=== PATIENT | female | born 1990 | race African-American/Black ===

== ENCOUNTER 2019-06-24 20:41 | Emergency (ER) | payer OTHER ==
[~2019-06-24] VITALS: Ht 162.6 cm; Wt 70.3 kg
[2019-06-24 21:12] VITALS: Ht 162.6 cm; Wt 70.3 kg
[2019-06-24 21:29] LABS: BASOPHIL % 0.7 % (0-2); PLATELET COUNT 359 x10^3mcL (130-400)
[2019-06-24 21:30] LABS: RED CELL DISTRIBUTION WIDTH 18.8 % (11.5-14.5)
[2019-06-24 21:45] LABS: CALCIUM 9.3 mg/dL (8.5-10.1); CARBON DIOXIDE 31.1 mmol/L (21-32); CREATININE SERUM 1.2 mg/dL (0.6-1.0); POTASSIUM SERUM 3.6 mmol/L (3.5-5.1)
[2019-06-24 21:49] LABS: ALBUMIN 3.9 g/dL (3.4-5.0); BILIRUBIN TOTAL 0.61 mg/dL (0.20-1.00); TOTAL PROTEIN, SERUM 8.1 g/dL (6.4-8.2)
[2019-06-24 23:45] VITALS: BP 111/65
== END 2019-06-24 23:45 | disposition home or self-care (01) ==
LOC: ED 20:41
PROVIDERS: Student in an Organized Health Care Education/Training Program
DX: R11.0 Nausea (principal); R42 Dizziness and giddiness; R10.13 Epigastric pain; J45.909 Unspecified asthma, uncomplicated
CPT/HCPCS: J1885; J2405; J7030; Q0092

== ENCOUNTER 2019-08-14 20:48 | Emergency (ER) | payer OTHER ==
[~2019-08-14] VITALS: Ht 160 cm; Wt 68.7 kg
[2019-08-14 20:51] VITALS: Ht 160 cm; Wt 68.7 kg
[2019-08-14 21:29] LABS: BASOPHIL % 0.5 % (0-2); PLATELET COUNT 331 x10^3mcL (130-400)
[2019-08-14 21:34] LABS: CALCIUM 9.1 mg/dL (8.5-10.1); CARBON DIOXIDE 27.3 mmol/L (21-32); CHLORIDE SERUM 102 mmol/L (98-107); GFR1 > 60 mL/min; GLUCOSE SERUM 142 mg/dL (74-106); POTASSIUM SERUM 3.9 mmol/L (3.5-5.1); RED CELL DISTRIBUTION WIDTH 19.4 % (11.5-14.5); SODIUM SERUM 141 mmol/L (136-145)
[2019-08-14 21:39] LABS: ALBUMIN 3.9 g/dL (3.4-5.0); ALKALINE PHOSPHATASE 73 U/L (46-116); ALT/SGPT 20 U/L (14-59); AST/SGOT 11 U/L (15-37); BILIRUBIN TOTAL 0.7 mg/dL (0.20-1.00); TOTAL PROTEIN, SERUM 8.2 g/dL (6.4-8.2)
[2019-08-14 21:50] LABS: AMPHETAMINE QUAL UR POSITIVE (See below)
[2019-08-14 21:50] LABS: FREE T4 1.21 ng/dL (0.76-1.46); FREE THYROXINE INDEX 3.1 ug/dL (1.4-4.5); T4(THYROXINE) 9.4 ug/dL (4.7-13.3)
[2019-08-14 21:53] LABS: T3 TOTAL 1.18 ng/mL
[2019-08-15 01:57] VITALS: BP 123/83
== END 2019-08-15 01:57 | disposition home or self-care (01) ==
LOC: ED 20:48
PROVIDERS: Emergency Medicine
DX: F32.9 Major depressive disorder, single episode, unspecified (principal); F41.9 Anxiety disorder, unspecified; F15.10 Other stimulant abuse, uncomplicated; J45.909 Unspecified asthma, uncomplicated
CPT/HCPCS: 36415; 84439; G0480; J7613

== ENCOUNTER 2020-07-03 10:21 | Emergency (ER) | payer OTHER ==
[~2020-07-03] VITALS: Ht 160 cm; Wt 62.1 kg
[2020-07-03 10:36] VITALS: BP 128/83; Ht 160 cm; Wt 62.1 kg
== END 2020-07-03 12:19 | disposition left against medical advice (07) ==
LOC: ED 10:21
DX: J45.909 Unspecified asthma, uncomplicated (principal)
CPT/HCPCS: J8540